=== PATIENT | female | born 1955 | race Caucasian/White ===

== ENCOUNTER → 2016-05-06 | Outpatient (CLI) | payer MEDICARE ==
[~2016-05-06] MED LIST: ALBUTEROL2.5 MG/0.5 INH; ATORVASTATIN CA80 M1 PO; CLINDAMYCIN HC300 MG PO; CYCLOBENZAPRINE10 MG PO; CYCLOBENZAPRINE5 M3 PO; GABAPENTIN100 M2 PO; HUMALOG100 U/ML SC; HYDROCODONE BIT1 T11 PO; LEVEMIR10 ML SC; LISINOPRIL20 MG PO; METFORMIN1000 MG PO; NYAMYC100000 U/G T; PREDNISONE20 M1 PO; PROAIR HFA8.5 GM INH; QVAR0.08 MG/AC INH; TRAMADOL HCL50 MG PO; VIBRAMYCIN100 MG PO; VOLTAREN50 M1 PO; ZOVIRAX400 MG PO
== END | disposition home or self-care (01) ==
LOC: RESCLI 02:32
DX: Z12.31 Encounter for screening mammogram for malignant neoplasm of breast (principal); Z11.59 Encounter for screening for other viral diseases; Z79.4 Long term (current) use of insulin; E11.65 Type 2 diabetes mellitus with hyperglycemia; G47.00 Insomnia, unspecified; I10 Essential (primary) hypertension; E78.2 Mixed hyperlipidemia; M15.0 Primary generalized (osteo)arthritis; G62.9 Polyneuropathy, unspecified; Z88.0 Allergy status to penicillin

== ENCOUNTER → 2016-07-01 | Outpatient (CLI) | payer MEDICARE | END | disposition home or self-care (01) | LOC: RESCLI 03:03 | DX: E11.65 Type 2 diabetes mellitus with hyperglycemia (principal); F32.9 Major depressive disorder, single episode, unspecified; I10 Essential (primary) hypertension; Z88.0 Allergy status to penicillin ==

== ENCOUNTER → 2016-07-23 | Day surgery (SDC) | payer MEDICARE ==
[~2016-07-23] VITALS: Ht 162.5 cm; Wt 107.0 kg
[~2016-07-23] MED LIST changes: +LANTUS100 U/ML SQ
--- NOTE | ~2016-07-23 | O ---
[place], [place] OPERATIVE NOTE NAME: KATHIE MEANS UNIT #: [id number] ROOM: DOCTOR: CALVIN FLORES MD BIRTHDATE: [birth year] DOS: 07/23/2016 A 60-year-old patient who presented with chief complaint of concern about colonic screening, undergoing investigation. ALLERGIES: PENICILLIN, SULFA, IODINE, ASPIRIN and LUCIANO PRODUCT OF ANESTHESIA. FAMILY HISTORY: Mother with colonic carcinoma. PAST SURGICAL HISTORY: Tubal ligation. Carpal tunnel, cataracts, and bilateral total knee. PAST MEDICAL HISTORY: Diabetes, hypertension, neuropathy, asthma, restless leg. SOCIAL HISTORY: Nonsmoker, nonalcohol consumer, drinking 3 sodas per day. PROCEDURE: Today's procedure part of investigation is colonoscopy plus polypectomy. PREMEDICATION: Versed and Diprivan. SCOPE: Olympus forward-viewing colonoscope 10L video. REPORT: After putting the patient in the left lateral position and after application of lubricant to rectal pouch and digital examination, scope was introduced. Thereafter, under direct visualization, I advanced through the length of colon without difficulty. Base of the cecum explored, appendiceal orifice identified, and ileocecal valve was defined. The cecal polypoid lesion with piecemeal polypectomy removed. Air was suctioned out. The patient was gradually extubated and tolerated the procedure well. IMPRESSION: Cecal colonic polyp, status post piecemeal polypectomy. PLAN AND DISCUSSION: High fiber fruit diet, activity Ad sotero. FOLLOWUP: As an outpatient routinely with you in office and follow up with us in GI Clinic. [place], [place] OPERATIVE NOTE NAME: KATHIE MEANS UNIT #: [id number] ROOM: DOCTOR: CALVIN FLORES MD BIRTHDATE: [birth year] CALVIN FLORES MD CM:OPRECORD:OPERATIVE NOTE 2 1 CALVIN FLORES MD 07/23/16831 interface
[2016-07-23 06:45] VITALS: BP 114/72
[2016-07-23 08:08] VITALS: BP 135/75
[2016-07-23 08:25] VITALS: BP 150/76
[2016-07-23 08:33] VITALS: BP 155/83
== END | disposition home or self-care (01) ==
LOC: SDC 07-17 09:30
DX: Z12.11 Encounter for screening for malignant neoplasm of colon (principal); K63.5 Polyp of colon; I10 Essential (primary) hypertension; E11.9 Type 2 diabetes mellitus without complications; J45.909 Unspecified asthma, uncomplicated; G25.81 Restless legs syndrome; G62.9 Polyneuropathy, unspecified; Z98.51 Tubal ligation status; Z80.0 Family history of malignant neoplasm of digestive organs; K21.9 Gastro-esophageal reflux disease without esophagitis; M19.90 Unspecified osteoarthritis, unspecified site; Z83.3 Family history of diabetes mellitus; Z82.49 Family history of ischemic heart disease and other diseases of the circulatory system

== ENCOUNTER → 2016-07-29 | Outpatient (CLI) | payer MEDICARE ==
[2016-07-29 10:15] LABS: HEMOGLOBIN A1c 7.7 % (4.8-5.6)
== END | disposition home or self-care (01) ==
LOC: RESCLI 02:03 → LAB 02:03 → RESCLI 12:01
PROVIDERS: Internal Medicine
DX: E11.42 Type 2 diabetes mellitus with diabetic polyneuropathy (principal)

== ENCOUNTER → 2016-10-20 | Outpatient (CLI) | payer MEDICARE ==
[2016-10-20 11:53] LABS: BUN 21 mg/dl (7-24); CARBON DIOXIDE 28 mmol/L (21-32); CHLORIDE 103 mmol/L (98-107); EST GLOM FILT AFRICAN AMERICAN > 60 ml/min; GLUCOSE 94 mg/dL (65-99); POTASSIUM 4.8 mmol/L (3.5-5.1); SODIUM 140 mmol/L (136-145)
[2016-10-20 12:04] LABS: HEMOGLOBIN A1c 7.4 % (4.8-5.6)
[2016-10-20 13:05] LABS: VITAMIN D, 25-HYDROXY 23.2 ng/mL (30-100)
== END | disposition home or self-care (01) ==
LOC: LAB 11:00
PROVIDERS: Internal Medicine
DX: E11.42 Type 2 diabetes mellitus with diabetic polyneuropathy (principal); R53.82 Chronic fatigue, unspecified; E55.9 Vitamin D deficiency, unspecified

== ENCOUNTER → 2016-10-28 | Outpatient (CLI) | payer MEDICARE | END | disposition home or self-care (01) | LOC: RESCLI 02:55 | DX: Z13.820 Encounter for screening for osteoporosis (principal); E11.21 Type 2 diabetes mellitus with diabetic nephropathy; F33.9 Major depressive disorder, recurrent, unspecified; E78.2 Mixed hyperlipidemia; E55.9 Vitamin D deficiency, unspecified; E53.8 Deficiency of other specified B group vitamins; I10 Essential (primary) hypertension ==

== ENCOUNTER → 2017-05-21 | Outpatient (CLI) | payer MEDICARE | END | disposition home or self-care (01) | LOC: LAB 12:47 | DX: E11.21 Type 2 diabetes mellitus with diabetic nephropathy (principal) ==

== ENCOUNTER → 2017-05-26 | Outpatient (CLI) | payer MEDICARE ==
[2017-05-26 10:37] LABS: BASO % 0.5 % (0.0-1.0); EOS # 0.4 10*3/uL (0.0-0.4); EOS % 5.3 % (1.0-4.0); HEMATOCRIT 40.4 % (37.0-47.0); HEMOGLOBIN 13.2 g/dl (12.0-16.0); LYMPH # 2.4 10*3/uL (1.3-4.4); LYMPH % 28.9 % (27.0-41.0); MEAN CELL VOLUME 87.4 fl (81.0-99.0); MEAN CORPUSCULAR HGB 28.6 pg (27.0-31.0); MEAN CORPUSCULAR HGB CONC 32.7 g/dl (33.0-37.0); MEAN PLATELET VOLUME 10.2 fl (9.6-12.3); MONO # 0.7 10*3/uL (0.1-1.0); NEUT # 4.6 10*3/uL (2.3-7.9); NEUT % 56.9 % (47.0-73.0); PLATELET COUNT AUTOMATED 318 10*3/uL (130-400); RED BLOOD COUNT 4.62 10*6/uL (4.10-5.10); WHITE BLOOD COUNT 8.1 10*3/uL (4.8-10.8)
[2017-05-26 11:11] LABS: ALBUMIN 3.9 gm/dl (3.1-4.5); ALKALINE PHOSPHATASE 101 U/L (45-117); BUN 19 mg/dl (7-24); CHLORIDE 102 mmol/L (98-107); CHOLESTEROL 150 mg/dL (<200); CREATININE 0.88 mg/dL (0.55-1.02); HDL CHOLESTEROL 48 mg/dl (40-60); LDL CHOLESTEROL 69 mg/dL (9-159); POTASSIUM 4.2 mmol/L (3.5-5.1); SGOT/AST 22 IU/L (3-35); SGPT/ALT 29 U/L (12-78); SODIUM 137 mmol/L (136-145); TOTAL PROTEIN 7.6 gm/dL (6.4-8.2); TRIGLYCERIDES 165 mg/dl (<150); VLDL CHOLESTEROL 33 mg/dL (6-40)
== END | disposition home or self-care (01) ==
LOC: RESCLI 00:35
PROVIDERS: Internal Medicine
DX: Z23 Encounter for immunization (principal); E11.65 Type 2 diabetes mellitus with hyperglycemia; M15.0 Primary generalized (osteo)arthritis; E78.2 Mixed hyperlipidemia; F33.9 Major depressive disorder, recurrent, unspecified; E11.42 Type 2 diabetes mellitus with diabetic polyneuropathy; J45.40 Moderate persistent asthma, uncomplicated; I10 Essential (primary) hypertension; E55.9 Vitamin D deficiency, unspecified; E66.01 Morbid (severe) obesity due to excess calories; Z86.19 Personal history of other infectious and parasitic diseases; Z88.0 Allergy status to penicillin; Z88.2 Allergy status to sulfonamides; Z88.6 Allergy status to analgesic agent; Z91.041 Radiographic dye allergy status

== ENCOUNTER → 2017-06-22 | Outpatient (CLI) | payer MEDICARE | END | disposition home or self-care (01) | LOC: RESCLI 02:11 | DX: E11.65 Type 2 diabetes mellitus with hyperglycemia (principal); E11.42 Type 2 diabetes mellitus with diabetic polyneuropathy; I10 Essential (primary) hypertension; E66.01 Morbid (severe) obesity due to excess calories; R80.9 Proteinuria, unspecified; B02.9 Zoster without complications; E78.2 Mixed hyperlipidemia; E55.9 Vitamin D deficiency, unspecified; Z88.0 Allergy status to penicillin ==

== ENCOUNTER → 2017-07-01 | Outpatient (CLI) | payer MEDICARE | END | disposition home or self-care (01) | LOC: MAMMO 00:33 | DX: Z12.31 Encounter for screening mammogram for malignant neoplasm of breast (principal) ==

== ENCOUNTER → 2017-09-17 | Outpatient (CLI) | payer MEDICARE ==
[2017-09-17 11:14] LABS: HEMOGLOBIN 12.2 g/dl (12.0-16.0); MEAN CELL VOLUME 91.1 fl (81.0-99.0); MEAN CORPUSCULAR HGB 28.5 pg (27.0-31.0); MEAN CORPUSCULAR HGB CONC 31.3 g/dl (33.0-37.0); MEAN PLATELET VOLUME 10.7 fl (9.6-12.3); RED BLOOD COUNT 4.28 10*6/uL (4.10-5.10); RED CELL DISTRI WIDTH 14.4 % (0-14.5); WHITE BLOOD COUNT 7.5 10*3/uL (4.8-10.8)
[2017-09-17 11:42] LABS: BUN 22 mg/dl (7-24); CHLORIDE 102 mmol/L (98-107); CHOLESTEROL 105 mg/dL (<200); CREATININE 0.95 mg/dL (0.55-1.02); HDL CHOLESTEROL 40 mg/dl (40-60); LDL CHOLESTEROL 43 mg/dL (9-159); POTASSIUM 4.9 mmol/L (3.5-5.1); SODIUM 138 mmol/L (136-145); TRIGLYCERIDES 108 mg/dl (<150); VLDL CHOLESTEROL 22 mg/dL (6-40)
== END | disposition home or self-care (01) ==
LOC: LAB 10:42
PROVIDERS: Internal Medicine
DX: E11.65 Type 2 diabetes mellitus with hyperglycemia (principal)

== ENCOUNTER → 2017-10-13 | Outpatient (CLI) | payer MEDICARE | END | disposition home or self-care (01) | LOC: RESCLI 02:36 | DX: I10 Essential (primary) hypertension (principal); E11.65 Type 2 diabetes mellitus with hyperglycemia; E78.2 Mixed hyperlipidemia; D51.0 Vitamin B12 deficiency anemia due to intrinsic factor deficiency; M15.0 Primary generalized (osteo)arthritis; E66.01 Morbid (severe) obesity due to excess calories; J45.40 Moderate persistent asthma, uncomplicated; E55.9 Vitamin D deficiency, unspecified; F33.9 Major depressive disorder, recurrent, unspecified; R25.2 Cramp and spasm; Z88.0 Allergy status to penicillin; Z88.2 Allergy status to sulfonamides; Z88.8 Allergy status to other drugs, medicaments and biological substances ==

== ENCOUNTER 2018-07-11 00:54 | Inpatient (IN) | payer MEDICARE ==
[~2018-07-11] VITALS: Ht 162.5 cm; Wt 114.2 kg
--- NOTE | ~2018-07-11 | EKG ---
[place], [place] ELECTROCARDIOGRAM REPORT NAME: KATHIE MEANS UNIT #: [id number] ROOM: [id number] DOCTOR: QUIANA DRAFT REPORT BIRTHDATE: [birth year] [facility] Test Date: 2018-07-11 Test Time: 01:17:50 Pat Name: KATHIE MEANS Department: ER Room: [facility] Gender: F [employer] Manager: Connie John : 1955 Requested By: GORGE SMITH Order Number: [id number] Reading MD: Curtis Wilkinson Measurements Intervals [place] Rate: 91 P: 61 UT: 175 QRS: -1 QRSD: 98 T: 59 QT: 391 QTc: 482 Interpretive Statements Sinus rhythm Baseline wander in lead(s) V3 Electronically Signed On 07-11-2018 11:07:04 PDT by Curtis Wilkinson CM:EKGRPT:ELECTROCARDIOGRAM REPORT [id number] GORGE RUVALCABA DRAFT REPORT GORGE SMITH DO
[2018-07-11 00:58] VITALS: BP 141/62
--- NOTE | 2018-07-11 01:11 | NUR ---
REPORT GIVEN TO MISTY DE PAZ RN.
[2018-07-11 01:32] LABS: BASO % 0.3 % (0.0-1.0); EOS # 0.1 10*3/uL (0.0-0.4); EOS % 1.2 % (1.0-4.0); HEMATOCRIT 45.2 % (37.0-47.0); LYMPH # 2.2 10*3/uL (1.3-4.4); LYMPH % 18.8 % (27.0-41.0); MEAN CORPUSCULAR HGB 29.9 pg (27.0-31.0); MEAN CORPUSCULAR HGB CONC 33.2 g/dl (33.0-37.0); MEAN PLATELET VOLUME 10.6 fl (9.6-12.3); MONO # 0.6 10*3/uL (0.1-1.0); NEUT # 8.6 10*3/uL (2.3-7.9); NEUT % 74.2 % (47.0-73.0); PLATELET COUNT AUTOMATED 314 10*3/uL (130-400); RED BLOOD COUNT 5.02 10*6/uL (4.10-5.10); RED CELL DISTRI WIDTH 13.6 % (0-14.5); WHITE BLOOD COUNT 11.6 10*3/uL (4.8-10.8)
--- NOTE | 2018-07-11 01:33 | NUR ---
CRITICAL LAB TAKEN LA 5.8. NOTIFIED.
[2018-07-11 01:39] LABS: BILIRUBIN NEGATIVE (NEGATIVE); BLOOD NEGATIVE (NEGATIVE); CLARITY CLEAR (CLEAR); COLOR YELLOW (YELLOW); GLUCOSE 3+ (NEGATIVE); KETONE NEGATIVE (NEGATIVE); LEUKO ESTERASE NEGATIVE (NEGATIVE); NITRITE NEGATIVE (NEGATIVE); SPECIFIC GRAVITY <= 1.005 (1.005-1.030); UROBILINOGEN 0.2 E.U./dl (0.2-1.0)
[2018-07-11 01:45] LABS: EPITHELIAL CELLS 0-5
[2018-07-11 02:02] LABS: ALBUMIN 3.8 gm/dl (3.1-4.5); ALKALINE PHOSPHATASE 113 U/L (45-117); BUN 19 mg/dl (7-24); CHLORIDE 94 mmol/L (98-107); CREATININE 1.19 mg/dL (0.55-1.02); POTASSIUM 3.9 mmol/L (3.5-5.1); SGOT/AST 17 IU/L (3-35); SGPT/ALT 24 U/L (12-78); SODIUM 131 mmol/L (136-145); TOTAL PROTEIN 8.2 gm/dL (6.4-8.2); TROPONIN I < 0.015 ng/ml (<0.045)
--- NOTE | 2018-07-11 03:35 | NUR ---
PT REFUSED TO TAKE WET PANTS OFF
[2018-07-11 03:45] VITALS: BP 90/70
--- NOTE | 2018-07-11 03:45 | NUR ---
Time: 344 A 62 year old FEMALE admitted to 5E under services of DONTE TRUJILLO DO. Pt. arrived via stretcher from ER. Chief complaint: HYPERGLYCEMIA, LACTIC ACIDOSIS. BOBY NANCE
--- NOTE | 2018-07-11 04:18 | NUR ---
NOTIFIED DR LEAVITT OF LA 5.0. NO NEW ORDERS RECEIVED.
[2018-07-11] MEDS ORDERED: GLUCOPHAGE1000 MG PO (04:51)
[2018-07-11] MEDS ORDERED: PAROXETINE HCL30 MG PO (04:52)
--- NOTE | 2018-07-11 06:29 | NUR ---
NOTIFIED DR LEAVITT OF LACTIC ACID 4.6. NO NEW ORDERS RECEIVED.
[2018-07-11 08:00] VITALS: BP 126/62; BP 132/74
--- NOTE | 2018-07-11 08:26 | NUR ---
24 HR chart check completed.
[2018-07-11] MEDS ORDERED: LEVEMIR FL100 UNIT/1 SQ (09:27)
[2018-07-11] MEDS ORDERED: NEURONTIN300 MG PO (09:28)
--- NOTE | 2018-07-11 09:30 | NUR ---
FAMILY PRESENT,VISITING. NO DISTRESS NOTED. RESPIRATIONS EASY. LUNGS DIMINISHED, CLEAR. PULSE O X99% RA. IV FLUIDS INFUSING PER ORDER. CALL LIGHT WITHIN REACH. NO VOICED COMPLAINTS
--- NOTE | 2018-07-11 10:00 | NUR ---
PATIENT UNSURE OF ALL HOME MEDS. QUESTIONED LAST TIME TAKEN, PER PATIENT "COUPLE DAYS." NOONE AVAIL TO GET MED LIST, PATIENT HAS MEDS FILLED SEVERAL DIFFERENT PLACES.
[2018-07-11] MEDS ORDERED: ZETIA10 MG PO (10:42)
--- NOTE | 2018-07-11 11:05 | NUR ---
DR VELASQUEZ AND AMY PRESENT ON FLOOR, INFORMED OF CRITICAL LACTIC
[2018-07-11 12:00] VITALS: BP 142/74
--- NOTE | 2018-07-11 13:15 | NUR ---
DR REYES CONTACTED AND INFORMED IF CRITICAL LACTIC, NEW ORDERS RECEIVED
--- NOTE | 2018-07-11 15:55 | NUR ---
LACTIC ACID 1.5, DR REYES INFORMED. PATIENT OK FOR D/C
[2018-07-11 16:00] VITALS: BP 140/62
--- NOTE | 2018-07-11 17:03 | NUR ---
PATIENT DISCHARGED IN CARE OF FAMILY MEMBER. IV WAS REMOVED AND PRESSURE DRESSING APPLIED. VERBALIZED UNDERSTANDING OF DISCHARGE INSTRUCTIONS.
== END 2018-07-11 17:04 | disposition home or self-care (01) | DRG 896 ==
LOC: ED 00:54 → EDHOLD 02:52 → 5E 03:07
PROVIDERS: Emergency Medicine; ADMIT Internal Medicine
DX: F10.920 Alcohol use, unspecified with intoxication, uncomplicated (principal); N17.0 Acute kidney failure with tubular necrosis; G93.41 Metabolic encephalopathy; E87.2 Acidosis; E87.1 Hypo-osmolality and hyponatremia; Z68.41 Body mass index [BMI] 40.0-44.9, adult; E11.65 Type 2 diabetes mellitus with hyperglycemia; M19.90 Unspecified osteoarthritis, unspecified site; J45.909 Unspecified asthma, uncomplicated; E78.5 Hyperlipidemia, unspecified; K21.9 Gastro-esophageal reflux disease without esophagitis; I10 Essential (primary) hypertension; E66.01 Morbid (severe) obesity due to excess calories; E11.42 Type 2 diabetes mellitus with diabetic polyneuropathy; G25.81 Restless legs syndrome; Y90.7 Blood alcohol level of 200-239 mg/100 ml; E87.8 Other disorders of electrolyte and fluid balance, not elsewhere classified; N32.81 Overactive bladder; Z96.653 Presence of artificial knee joint, bilateral; Z82.49 Family history of ischemic heart disease and other diseases of the circulatory system; Z83.3 Family history of diabetes mellitus; Z80.9 Family history of malignant neoplasm, unspecified; Z98.51 Tubal ligation status; Z88.0 Allergy status to penicillin; Z88.2 Allergy status to sulfonamides; Z88.6 Allergy status to analgesic agent; Z91.041 Radiographic dye allergy status; Z79.4 Long term (current) use of insulin; Z79.84 Long term (current) use of oral hypoglycemic drugs; Z79.899 Other long term (current) drug therapy

== ENCOUNTER → 2018-07-27 | Outpatient (CLI) | payer MEDICARE ==
[~2018-07-27] MED LIST changes: +CIPRO500 MG PO; +GLUCOPHAGE1000 MG PO; +LEVEMIR FL100 UNIT/1 SQ; +NEURONTIN300 MG PO; +PAROXETINE HCL30 MG PO; +ZETIA10 MG PO
== END | disposition home or self-care (01) ==
LOC: RESCLI 02:23
DX: Z09 Encounter for follow-up examination after completed treatment for conditions other than malignant neoplasm (principal); E11.41 Type 2 diabetes mellitus with diabetic mononeuropathy; J45.909 Unspecified asthma, uncomplicated; G89.29 Other chronic pain; E66.01 Morbid (severe) obesity due to excess calories; M54.9 Dorsalgia, unspecified; M79.2 Neuralgia and neuritis, unspecified; I10 Essential (primary) hypertension; F32.9 Major depressive disorder, single episode, unspecified; E55.9 Vitamin D deficiency, unspecified; E78.5 Hyperlipidemia, unspecified; K21.9 Gastro-esophageal reflux disease without esophagitis; Z79.899 Other long term (current) drug therapy; Z88.0 Allergy status to penicillin; Z88.2 Allergy status to sulfonamides; Z79.4 Long term (current) use of insulin; Z91.041 Radiographic dye allergy status; Z88.8 Allergy status to other drugs, medicaments and biological substances

== ENCOUNTER 2018-10-26 11:24 | Emergency (ER) | payer MEDICARE ==
[~2018-10-26] VITALS: Wt 115.7 kg
[2018-10-26 11:24] VITALS: BP 172/85
[~2018-10-26 11:24] MED LIST changes: -CIPRO500 MG PO
[2018-10-26 12:25] LABS: BASO # 0.1 10*3/uL (0.0-0.1); BASO % 0.6 % (0.0-1.0); EOS # 0.4 10*3/uL (0.0-0.4); EOS % 3.8 % (1.0-4.0); HEMATOCRIT 41.5 % (37.0-47.0); HEMOGLOBIN 13.2 g/dl (12.0-16.0); LYMPH # 2.1 10*3/uL (1.3-4.4); LYMPH % 20.5 % (27.0-41.0); MEAN CELL VOLUME 93.9 fl (81.0-99.0); MEAN CORPUSCULAR HGB 29.9 pg (27.0-31.0); MEAN CORPUSCULAR HGB CONC 31.8 g/dl (33.0-37.0); MEAN PLATELET VOLUME 10.2 fl (9.6-12.3); MONO # 0.6 10*3/uL (0.1-1.0); MONO % 5.4 % (3.0-9.0); NEUT % 69.3 % (47.0-73.0); PLATELET COUNT AUTOMATED 324 10*3/uL (130-400); RED BLOOD COUNT 4.42 10*6/uL (4.10-5.10); RED CELL DISTRI WIDTH 13.7 % (0-14.5); WHITE BLOOD COUNT 10.1 10*3/uL (4.8-10.8)
[2018-10-26 12:41] LABS: ALBUMIN 4.1 gm/dl (3.1-4.5); ALKALINE PHOSPHATASE 100 U/L (45-117); BUN 25 mg/dl (7-24); CHLORIDE 106 mmol/L (98-107); CREATININE 0.99 mg/dL (0.55-1.02); POTASSIUM 4.1 mmol/L (3.5-5.1); SGOT/AST 15 IU/L (3-35); SGPT/ALT 25 U/L (12-78); SODIUM 141 mmol/L (136-145); TOTAL PROTEIN 7.9 gm/dL (6.4-8.2)
[2018-10-26 12:43] LABS: FREE T4 0.99 ng/dl (0.76-1.46)
[2018-10-26 12:48] LABS: THYROID STIM HORMONE (HS) 1.85 uIU/ml (0.358-4.75)
[2018-10-26] MEDS ORDERED: CIPRO500 MG PO (15:38)
== END 2018-10-26 15:42 | disposition home or self-care (01) ==
LOC: ED 11:24
PROVIDERS: Emergency Medicine
DX: H60.92 Unspecified otitis externa, left ear (principal); H66.92 Otitis media, unspecified, left ear; E11.9 Type 2 diabetes mellitus without complications; I10 Essential (primary) hypertension; J45.909 Unspecified asthma, uncomplicated; E78.5 Hyperlipidemia, unspecified; K21.9 Gastro-esophageal reflux disease without esophagitis; E66.01 Morbid (severe) obesity due to excess calories; Z88.0 Allergy status to penicillin; Z88.2 Allergy status to sulfonamides; Z91.041 Radiographic dye allergy status; Z88.6 Allergy status to analgesic agent; Z88.5 Allergy status to narcotic agent; Z88.4 Allergy status to anesthetic agent; Z79.4 Long term (current) use of insulin; Z79.899 Other long term (current) drug therapy

== ENCOUNTER → 2018-10-29 | Outpatient (CLI) | payer MEDICARE ==
[~2018-10-29] MED LIST changes: +CIPRO500 MG PO
== END | disposition home or self-care (01) ==
LOC: RESCLI 00:23
DX: E11.42 Type 2 diabetes mellitus with diabetic polyneuropathy (principal); E11.65 Type 2 diabetes mellitus with hyperglycemia; J45.909 Unspecified asthma, uncomplicated; D51.0 Vitamin B12 deficiency anemia due to intrinsic factor deficiency; G47.00 Insomnia, unspecified; M15.0 Primary generalized (osteo)arthritis; F33.9 Major depressive disorder, recurrent, unspecified; I10 Essential (primary) hypertension; G62.9 Polyneuropathy, unspecified; E78.2 Mixed hyperlipidemia; E55.9 Vitamin D deficiency, unspecified; J45.40 Moderate persistent asthma, uncomplicated; R80.9 Proteinuria, unspecified; R25.2 Cramp and spasm; G89.29 Other chronic pain; E66.01 Morbid (severe) obesity due to excess calories; H83.02 Labyrinthitis, left ear; E78.5 Hyperlipidemia, unspecified; B37.3 Candidiasis of vulva and vagina; Z79.4 Long term (current) use of insulin; Z79.899 Other long term (current) drug therapy

== ENCOUNTER → 2019-02-08 | Outpatient (CLI) | payer OTHER | END | disposition home or self-care (01) | LOC: RESCLI 00:52 | DX: Z12.4 Encounter for screening for malignant neoplasm of cervix (principal); E55.9 Vitamin D deficiency, unspecified; J45.909 Unspecified asthma, uncomplicated; E78.2 Mixed hyperlipidemia; G89.29 Other chronic pain; G62.9 Polyneuropathy, unspecified; I10 Essential (primary) hypertension; F32.9 Major depressive disorder, single episode, unspecified; E11.65 Type 2 diabetes mellitus with hyperglycemia; G47.33 Obstructive sleep apnea (adult) (pediatric); M54.40 Lumbago with sciatica, unspecified side; K21.9 Gastro-esophageal reflux disease without esophagitis; Z79.899 Other long term (current) drug therapy ==

== ENCOUNTER → 2019-05-24 | Outpatient (CLI) | payer OTHER ==
[2019-05-24 13:08] LABS: CHOLESTEROL 143 mg/dL (<200); HDL CHOLESTEROL 42 mg/dl (40-60); LDL CHOLESTEROL 42 mg/dL (9-159); TRIGLYCERIDES 295 mg/dl (<150); VLDL CHOLESTEROL 59 mg/dL (6-40)
== END | disposition home or self-care (01) ==
LOC: RESCLI 01:03
PROVIDERS: Student in an Organized Health Care Education/Training Program
DX: Z12.31 Encounter for screening mammogram for malignant neoplasm of breast (principal); Z12.4 Encounter for screening for malignant neoplasm of cervix; G89.29 Other chronic pain; E78.2 Mixed hyperlipidemia; G62.9 Polyneuropathy, unspecified; I10 Essential (primary) hypertension; E11.65 Type 2 diabetes mellitus with hyperglycemia; J45.909 Unspecified asthma, uncomplicated; F32.9 Major depressive disorder, single episode, unspecified; E55.9 Vitamin D deficiency, unspecified; K21.9 Gastro-esophageal reflux disease without esophagitis; B37.9 Candidiasis, unspecified; Z88.0 Allergy status to penicillin; Z88.8 Allergy status to other drugs, medicaments and biological substances

== ENCOUNTER → 2019-06-09 | Outpatient (CLI) | payer OTHER | END | disposition home or self-care (01) | LOC: MAMMO 07:02 | DX: Z12.31 Encounter for screening mammogram for malignant neoplasm of breast (principal) ==

== ENCOUNTER 2019-09-06 19:21 | Emergency (ER) | payer OTHER ==
[~2019-09-06] VITALS: Ht 162.5 cm; Wt 122.5 kg
[2019-09-06 19:26] VITALS: BP 186/77
[2019-09-06] MEDS ORDERED: OMNICEF300 MG PO (21:48)
== END 2019-09-06 22:05 | disposition home or self-care (01) ==
LOC: ED 19:21
DX: J32.9 Chronic sinusitis, unspecified (principal); J45.909 Unspecified asthma, uncomplicated; M19.90 Unspecified osteoarthritis, unspecified site; K21.9 Gastro-esophageal reflux disease without esophagitis; I10 Essential (primary) hypertension; E66.01 Morbid (severe) obesity due to excess calories; E11.43 Type 2 diabetes mellitus with diabetic autonomic (poly)neuropathy; Z88.0 Allergy status to penicillin; Z88.2 Allergy status to sulfonamides; Z88.6 Allergy status to analgesic agent; Z91.041 Radiographic dye allergy status; Z79.899 Other long term (current) drug therapy

== ENCOUNTER → 2019-11-02 | Outpatient (CLI) | payer OTHER ==
[~2019-11-02] MED LIST changes: +OMNICEF300 MG PO
== END | disposition home or self-care (01) ==
LOC: RESCLI 00:43
DX: E78.2 Mixed hyperlipidemia (principal); J45.909 Unspecified asthma, uncomplicated; J45.40 Moderate persistent asthma, uncomplicated; E11.65 Type 2 diabetes mellitus with hyperglycemia; B37.9 Candidiasis, unspecified; J32.1 Chronic frontal sinusitis; G89.29 Other chronic pain; I10 Essential (primary) hypertension; Z79.899 Other long term (current) drug therapy; Z98.890 Other specified postprocedural states; Z98.51 Tubal ligation status; Z88.0 Allergy status to penicillin; Z88.8 Allergy status to other drugs, medicaments and biological substances

== ENCOUNTER 2019-11-21 14:02 | Emergency (ER) | payer OTHER ==
[2019-11-21 14:09] VITALS: BP 169/100
== END 2019-11-21 17:23 | disposition home or self-care (01) ==
LOC: ED 14:02
DX: T14.8XXA Other injury of unspecified body region, initial encounter (principal); R07.81 Pleurodynia; M25.512 Pain in left shoulder; J45.909 Unspecified asthma, uncomplicated; K21.9 Gastro-esophageal reflux disease without esophagitis; M19.90 Unspecified osteoarthritis, unspecified site; E11.42 Type 2 diabetes mellitus with diabetic polyneuropathy; F17.200 Nicotine dependence, unspecified, uncomplicated; Z88.0 Allergy status to penicillin; Z88.2 Allergy status to sulfonamides; Z91.041 Radiographic dye allergy status; Z88.6 Allergy status to analgesic agent; Z88.4 Allergy status to anesthetic agent; Z79.899 Other long term (current) drug therapy; Z79.4 Long term (current) use of insulin; W01.198A Fall on same level from slipping, tripping and stumbling with subsequent striking against other object, initial encounter; Y93.89 Activity, other specified; Y92.89 Other specified places as the place of occurrence of the external cause; Y99.8 Other external cause status

== ENCOUNTER → 2020-02-16 | Outpatient (CLI) | payer OTHER | END | disposition home or self-care (01) | LOC: RESCLI 05:14 | PROVIDERS: ATTEND Internal Medicine | DX: K21.9 Gastro-esophageal reflux disease without esophagitis (principal); I10 Essential (primary) hypertension; E11.65 Type 2 diabetes mellitus with hyperglycemia; G89.29 Other chronic pain; E55.9 Vitamin D deficiency, unspecified; J32.0 Chronic maxillary sinusitis; Z79.899 Other long term (current) drug therapy; Z23 Encounter for immunization; Z98.890 Other specified postprocedural states; Z88.0 Allergy status to penicillin; Z88.8 Allergy status to other drugs, medicaments and biological substances ==

== ENCOUNTER → 2020-04-25 | Outpatient (CLI) | payer OTHER | END | disposition home or self-care (01) | LOC: RESCLI 00:11 | PROVIDERS: ATTEND Internal Medicine Nephrology | DX: E78.2 Mixed hyperlipidemia (principal); J45.909 Unspecified asthma, uncomplicated; E11.65 Type 2 diabetes mellitus with hyperglycemia; I10 Essential (primary) hypertension; J32.0 Chronic maxillary sinusitis; R26.89 Other abnormalities of gait and mobility; F32.9 Major depressive disorder, single episode, unspecified; E55.9 Vitamin D deficiency, unspecified; E53.8 Deficiency of other specified B group vitamins; Z79.899 Other long term (current) drug therapy; Z88.0 Allergy status to penicillin; Z88.8 Allergy status to other drugs, medicaments and biological substances ==

== ENCOUNTER → 2020-05-04 | Outpatient (CLI) | payer OTHER ==
[2020-05-04 14:34] LABS: BILIRUBIN Negative (Negative); BLOOD Negative (Negative); CLARITY Cloudy (Clear); COLOR Yellow (Yellow); GLUCOSE 2+ (Negative); KETONE Negative (Negative); LEUKO ESTERASE 3+ (Negative); NITRITE Negative (Negative); SPECIFIC GRAVITY 1.015 (1.001-1.030); UROBILINOGEN 0.2 E.U./dl (0.0-1.0)
[2020-05-04 14:36] LABS: ALBUMIN 3.9 gm/dl (3.1-4.5); BILIRUBIN, DIRECT 0.1 mg/dL (0.0-0.2); CREATININE 1.22 mg/dL (0.55-1.02); POTASSIUM 5.4 mmol/L (3.5-5.1); TOTAL PROTEIN 7.4 gm/dL (6.4-8.2)
[2020-05-04 14:37] LABS: FREE T4 1.08 ng/dl (0.76-1.46)
[2020-05-04 14:42] LABS: THYROID STIM HORMONE (HS) 1.36 uIU/ml (0.358-4.75)
[2020-05-04 14:48] LABS: BACTERIA 2+
== END | disposition home or self-care (01) ==
LOC: LAB 13:57
PROVIDERS: ATTEND Internal Medicine
DX: E11.65 Type 2 diabetes mellitus with hyperglycemia (principal); E55.9 Vitamin D deficiency, unspecified; E04.9 Nontoxic goiter, unspecified; E78.5 Hyperlipidemia, unspecified

== ENCOUNTER → 2020-10-09 | Outpatient (CLI) | payer OTHER ==
[2020-10-09 13:44] LABS: BASO # 0.1 10*3/uL (0.0-0.1); BASO % 0.6 % (0.0-1.0); EOS # 0.5 10*3/uL (0.0-0.4); EOS % 5.1 % (1.0-4.0); HEMATOCRIT 41.2 % (37.0-47.0); LYMPH # 2.6 10*3/uL (1.3-4.4); LYMPH % 24.3 % (27.0-41.0); MEAN CELL VOLUME 93.4 fl (81.0-99.0); MEAN CORPUSCULAR HGB CONC 31.1 g/dl (33.0-37.0); MEAN PLATELET VOLUME 10.1 fl (9.6-12.3); MONO # 0.7 10*3/uL (0.1-1.0); MONO % 6.3 % (3.0-9.0); NEUT # 6.8 10*3/uL (2.3-7.9); NEUT % 63.3 % (47.0-73.0); PLATELET COUNT AUTOMATED 333 10*3/uL (130-400); RED BLOOD COUNT 4.41 10*6/uL (4.10-5.10); RED CELL DISTRI WIDTH 14.8 % (0-14.5); WHITE BLOOD COUNT 10.7 10*3/uL (4.8-10.8)
[2020-10-09 14:38] LABS: ALBUMIN 3.7 gm/dl (3.1-4.5); ALKALINE PHOSPHATASE 87 U/L (45-117); BUN 21 mg/dl (7-24); CHLORIDE 102 mmol/L (98-107); CREATININE 1.02 mg/dL (0.55-1.02); POTASSIUM 5.2 mmol/L (3.5-5.1); SGOT/AST 24 IU/L (3-35); SGPT/ALT 56 U/L (12-78); SODIUM 137 mmol/L (136-145); TOTAL PROTEIN 7.4 gm/dL (6.4-8.2)
[2020-10-10 11:07] LABS: CREATININE,URINE 72.5 mg/dL (Not Estab.)
== END | disposition home or self-care (01) ==
LOC: RESCLI 12:51
PROVIDERS: Internal Medicine; ATTEND Internal Medicine
DX: G47.00 Insomnia, unspecified (principal); R09.81 Nasal congestion; E55.9 Vitamin D deficiency, unspecified; I10 Essential (primary) hypertension; E78.2 Mixed hyperlipidemia; M62.830 Muscle spasm of back; J45.909 Unspecified asthma, uncomplicated; J32.0 Chronic maxillary sinusitis; Z12.31 Encounter for screening mammogram for malignant neoplasm of breast; K21.9 Gastro-esophageal reflux disease without esophagitis; R26.89 Other abnormalities of gait and mobility; F32.9 Major depressive disorder, single episode, unspecified; E11.65 Type 2 diabetes mellitus with hyperglycemia; Z79.84 Long term (current) use of oral hypoglycemic drugs; Z79.899 Other long term (current) drug therapy; Z98.890 Other specified postprocedural states; Z88.0 Allergy status to penicillin; Z88.8 Allergy status to other drugs, medicaments and biological substances

== ENCOUNTER → 2020-10-24 | Outpatient (CLI) | payer OTHER | END | disposition home or self-care (01) | LOC: MAMMO 00:29 | PROVIDERS: ATTEND Internal Medicine | DX: Z12.31 Encounter for screening mammogram for malignant neoplasm of breast (principal) ==

== ENCOUNTER → 2020-11-07 | Outpatient (CLI) | payer OTHER | END | disposition home or self-care (01) | LOC: RESCLI 00:56 | PROVIDERS: ATTEND Internal Medicine | DX: R26.89 Other abnormalities of gait and mobility (principal); I10 Essential (primary) hypertension; E11.9 Type 2 diabetes mellitus without complications; F32.9 Major depressive disorder, single episode, unspecified; J45.909 Unspecified asthma, uncomplicated; K21.9 Gastro-esophageal reflux disease without esophagitis; M79.7 Fibromyalgia; E78.5 Hyperlipidemia, unspecified; M19.90 Unspecified osteoarthritis, unspecified site; Z88.8 Allergy status to other drugs, medicaments and biological substances; Z88.3 Allergy status to other anti-infective agents; Z98.890 Other specified postprocedural states; Z79.899 Other long term (current) drug therapy; Z86.59 Personal history of other mental and behavioral disorders ==

== ENCOUNTER → 2020-12-05 | Outpatient (CLI) | payer OTHER | END | disposition home or self-care (01) | LOC: RESCLI 00:29 | PROVIDERS: ATTEND Emergency Medicine | DX: R05 Cough (principal); M62.830 Muscle spasm of back; R26.89 Other abnormalities of gait and mobility; I10 Essential (primary) hypertension; E55.9 Vitamin D deficiency, unspecified; J45.909 Unspecified asthma, uncomplicated; J32.0 Chronic maxillary sinusitis; K21.9 Gastro-esophageal reflux disease without esophagitis; E11.65 Type 2 diabetes mellitus with hyperglycemia; F32.9 Major depressive disorder, single episode, unspecified; G47.00 Insomnia, unspecified; E78.2 Mixed hyperlipidemia; M79.7 Fibromyalgia; Z88.8 Allergy status to other drugs, medicaments and biological substances; Z88.0 Allergy status to penicillin; Z79.84 Long term (current) use of oral hypoglycemic drugs; Z79.899 Other long term (current) drug therapy ==

== ENCOUNTER → 2021-03-13 | Outpatient (CLI) | payer OTHER | END | disposition home or self-care (01) | LOC: RESCLI 00:25 | PROVIDERS: ATTEND Family Medicine | DX: R10.11 Right upper quadrant pain (principal); E78.2 Mixed hyperlipidemia; M62.830 Muscle spasm of back; E55.9 Vitamin D deficiency, unspecified; F32.9 Major depressive disorder, single episode, unspecified; M79.7 Fibromyalgia; E11.65 Type 2 diabetes mellitus with hyperglycemia; I10 Essential (primary) hypertension; G47.00 Insomnia, unspecified; J45.909 Unspecified asthma, uncomplicated; R26.89 Other abnormalities of gait and mobility; K21.9 Gastro-esophageal reflux disease without esophagitis; J32.0 Chronic maxillary sinusitis; Z96.651 Presence of right artificial knee joint; M19.90 Unspecified osteoarthritis, unspecified site; Z79.899 Other long term (current) drug therapy; Z79.84 Long term (current) use of oral hypoglycemic drugs; Z98.890 Other specified postprocedural states ==

== ENCOUNTER → 2021-06-13 | Outpatient (CLI) | payer OTHER | END | disposition home or self-care (01) | LOC: RESCLI 01:14 | PROVIDERS: ATTEND Student in an Organized Health Care Education/Training Program | DX: E11.65 Type 2 diabetes mellitus with hyperglycemia (principal); I10 Essential (primary) hypertension; F32.9 Major depressive disorder, single episode, unspecified; M62.830 Muscle spasm of back; J30.2 Other seasonal allergic rhinitis; E78.2 Mixed hyperlipidemia; Z79.84 Long term (current) use of oral hypoglycemic drugs; Z79.899 Other long term (current) drug therapy ==

== ENCOUNTER → 2021-08-08 | Outpatient (CLI) | payer OTHER ==
[2021-08-08 14:20] LABS: BASO # 0.1 10*3/uL (0.0-0.1); BASO % 0.4 % (0.0-1.0); EOS # 0.6 10*3/uL (0.0-0.4); EOS % 5.4 % (1.0-4.0); HEMATOCRIT 41.1 % (37.0-47.0); LYMPH % 17.8 % (27.0-41.0); MEAN CELL VOLUME 93.2 fl (81.0-99.0); MEAN CORPUSCULAR HGB 29.9 pg (27.0-31.0); MEAN CORPUSCULAR HGB CONC 32.1 g/dl (33.0-37.0); MONO # 0.6 10*3/uL (0.1-1.0); MONO % 5.2 % (3.0-9.0); NEUT # 7.9 10*3/uL (2.3-7.9); NEUT % 70.8 % (47.0-73.0); PLATELET COUNT AUTOMATED 351 10*3/uL (130-400); RED BLOOD COUNT 4.41 10*6/uL (4.10-5.10); RED CELL DISTRI WIDTH 15.1 % (0-14.5); WHITE BLOOD COUNT 11.1 10*3/uL (4.8-10.8)
[2021-08-08 14:54] LABS: CREATININE 1.48 mg/dL (0.55-1.02); POTASSIUM 4.9 mmol/L (3.5-5.1)
[2021-08-08 15:03] LABS: THYROID STIM HORMONE (HS) 1.09 uIU/ml (0.358-4.75); TOTAL PROTEIN 7.4 gm/dL (6.4-8.2)
[2021-08-08 15:16] LABS: VITAMIN D, 25-HYDROXY 23.3 ng/mL (30-100)
== END | disposition home or self-care (01) ==
LOC: LAB 13:55
PROVIDERS: Internal Medicine; ATTEND Internal Medicine
DX: E11.65 Type 2 diabetes mellitus with hyperglycemia (principal); I10 Essential (primary) hypertension; E78.2 Mixed hyperlipidemia; F32.9 Major depressive disorder, single episode, unspecified; E55.9 Vitamin D deficiency, unspecified

== ENCOUNTER → 2021-08-15 | Outpatient (CLI) | payer OTHER ==
[2021-08-15 13:04] LABS: CREATININE 1.3 mg/dL (0.55-1.02); POTASSIUM 4.7 mmol/L (3.5-5.1)
== END | disposition home or self-care (01) ==
LOC: LAB 00:16 → RESCLI 00:16
PROVIDERS: ATTEND Student in an Organized Health Care Education/Training Program
DX: N17.9 Acute kidney failure, unspecified (principal)

== ENCOUNTER → 2021-08-30 | Outpatient (CLI) | payer OTHER | END | disposition home or self-care (01) | LOC: US 08:29 | PROVIDERS: ATTEND Internal Medicine | DX: K50.80 Crohn's disease of both small and large intestine without complications (principal); K76.0 Fatty (change of) liver, not elsewhere classified ==

== ENCOUNTER → 2021-11-07 | Outpatient (CLI) | payer MEDICARE ==
[~2021-11-07] MED LIST changes: +ADVAIR 250/501 EA INH; +ALLERGY RELIEF25 MG PO; +ASPIRIN81 M1 PO; +FISH OIL 1,0001 EAC4 PO; +JARDIANCE25 MG PO; +LEVEMIR FL100 UNIT/1 SC; +LISINOPRIL40 MG PO; +NOVOLOG10 ML SC; +OMEPRAZOLE40 MG PO; +ONE-DAILY MULT1 EAC1 PO; +SINGULAIR10 M1 PO; +TYLENOL EXTRA500 MG PO; +VICTOZA 3-0.6 MG/0.1 SC; +VITAMIN D-40010 MCG PO; +VITAMIN E90 M1 PO
[2021-11-07 11:43] LABS: BASO # 0.1 10*3/uL (0.0-0.1); BASO % 0.5 % (0.0-1.0); EOS # 0.8 10*3/uL (0.0-0.4); EOS % 7.8 % (1.0-4.0); HEMATOCRIT 40.8 % (37.0-47.0); LYMPH # 1.8 10*3/uL (1.3-4.4); MEAN CELL VOLUME 93.4 fl (81.0-99.0); MEAN CORPUSCULAR HGB 29.3 pg (27.0-31.0); MEAN CORPUSCULAR HGB CONC 31.4 g/dl (33.0-37.0); MEAN PLATELET VOLUME 9.9 fl (9.6-12.3); MONO # 0.7 10*3/uL (0.1-1.0); MONO % 6.7 % (3.0-9.0); NEUT # 7.3 10*3/uL (2.3-7.9); NEUT % 67.7 % (47.0-73.0); PLATELET COUNT AUTOMATED 357 10*3/uL (130-400); RED BLOOD COUNT 4.37 10*6/uL (4.10-5.10); RED CELL DISTRI WIDTH 15.4 % (0-14.5); WHITE BLOOD COUNT 10.8 10*3/uL (4.8-10.8)
[2021-11-07 11:57] LABS: CREATININE 1.18 mg/dL (0.55-1.02); POTASSIUM 5.5 mmol/L (3.5-5.1)
== END | disposition home or self-care (01) ==
LOC: RESCLI 01:10
PROVIDERS: Internal Medicine; ATTEND Internal Medicine
DX: E11.42 Type 2 diabetes mellitus with diabetic polyneuropathy (principal); R05.9 Cough, unspecified; J45.909 Unspecified asthma, uncomplicated; Z79.4 Long term (current) use of insulin; I10 Essential (primary) hypertension; M15.0 Primary generalized (osteo)arthritis; G89.29 Other chronic pain; G47.33 Obstructive sleep apnea (adult) (pediatric); M79.7 Fibromyalgia; K80.20 Calculus of gallbladder without cholecystitis without obstruction; Z79.899 Other long term (current) drug therapy; Z79.82 Long term (current) use of aspirin; Z88.0 Allergy status to penicillin; Z88.8 Allergy status to other drugs, medicaments and biological substances

== ENCOUNTER → 2021-11-13 | Outpatient (CLI) | payer MEDICARE ==
[~2021-11-13] VITALS: Ht 162.5 cm; Wt 124.7 kg
[2021-11-13 13:47] VITALS: BP 125/63
== END | disposition home or self-care (01) ==
LOC: SDC 11-11 14:00 → CARD → SDC 11-14 01:00 → EDSTATUS 11-14 14:00
PROVIDERS: ATTEND Surgery
DX: K42.9 Umbilical hernia without obstruction or gangrene (principal); K80.00 Calculus of gallbladder with acute cholecystitis without obstruction

== ENCOUNTER → 2021-12-19 | Outpatient (CLI) | payer MEDICARE ==
[~2021-12-19] MED LIST changes: +FLONASE ALLERG9.9 ML NAS; -NEURONTIN300 MG PO; +NEURONTIN800 MG PO
== END | disposition home or self-care (01) ==
LOC: CARD 00:37
PROVIDERS: ATTEND Registered Nurse
DX: I10 Essential (primary) hypertension (principal); Z72.0 Tobacco use; E66.01 Morbid (severe) obesity due to excess calories; R94.31 Abnormal electrocardiogram [ECG] [EKG]; R05.9 Cough, unspecified; Z82.49 Family history of ischemic heart disease and other diseases of the circulatory system; R01.1 Cardiac murmur, unspecified; Z01.810 Encounter for preprocedural cardiovascular examination; E78.5 Hyperlipidemia, unspecified; E11.65 Type 2 diabetes mellitus with hyperglycemia

== ENCOUNTER → 2022-02-07 | Outpatient (CLI) | payer MEDICARE ==
[~2022-02-07] MED LIST changes: +CEFUROXIME AXE500 MG PO
== END | disposition home or self-care (01) ==
LOC: RESCLI 00:01 → LAB 01:14 → RESCLI 01:14
PROVIDERS: ATTEND Internal Medicine
DX: E11.65 Type 2 diabetes mellitus with hyperglycemia (principal); E78.2 Mixed hyperlipidemia; E11.42 Type 2 diabetes mellitus with diabetic polyneuropathy; F33.9 Major depressive disorder, recurrent, unspecified; G47.33 Obstructive sleep apnea (adult) (pediatric); I10 Essential (primary) hypertension; K21.9 Gastro-esophageal reflux disease without esophagitis; E55.9 Vitamin D deficiency, unspecified; F17.200 Nicotine dependence, unspecified, uncomplicated; M79.7 Fibromyalgia; G25.81 Restless legs syndrome; J45.41 Moderate persistent asthma with (acute) exacerbation; Z68.42 Body mass index [BMI] 45.0-49.9, adult; Z23 Encounter for immunization; Z98.890 Other specified postprocedural states; Z88.0 Allergy status to penicillin; Z88.8 Allergy status to other drugs, medicaments and biological substances; Z88.2 Allergy status to sulfonamides; Z88.5 Allergy status to narcotic agent; Z79.82 Long term (current) use of aspirin; Z79.84 Long term (current) use of oral hypoglycemic drugs; Z79.899 Other long term (current) drug therapy

== ENCOUNTER 2022-02-18 11:03 | Emergency (ER) | payer MEDICARE ==
[~2022-02-18] VITALS: Wt 113.9 kg
[~2022-02-18 11:03] MED LIST changes: -CEFUROXIME AXE500 MG PO
[2022-02-18 11:29] VITALS: BP 102/56
[2022-02-18 12:28] LABS: BILIRUBIN Negative (Negative); BLOOD Trace-Intact (Negative); CLARITY Turbid (Clear); COLOR Yellow (Yellow); GLUCOSE 1+ (Negative); KETONE Negative (Negative); LEUKO ESTERASE 3+ (Negative); NITRITE Positive (Negative); SPECIFIC GRAVITY 1.015 (1.001-1.030); UROBILINOGEN 0.2 E.U./dl (0.0-1.0)
[2022-02-18 12:41] LABS: BASO # 0.1 10*3/uL (0.0-0.1); BASO % 0.5 % (0.0-1.0); EOS # 0.3 10*3/uL (0.0-0.4); EOS % 2.8 % (1.0-4.0); HEMATOCRIT 38.6 % (37.0-47.0); LYMPH # 2.4 10*3/uL (1.3-4.4); LYMPH % 20.5 % (27.0-41.0); MEAN CELL VOLUME 93.7 fl (81.0-99.0); MEAN CORPUSCULAR HGB 29.9 pg (27.0-31.0); MEAN CORPUSCULAR HGB CONC 31.9 g/dl (33.0-37.0); MEAN PLATELET VOLUME 9.7 fl (9.6-12.3); MONO # 0.9 10*3/uL (0.1-1.0); MONO % 7.4 % (3.0-9.0); NEUT # 7.9 10*3/uL (2.3-7.9); NEUT % 67.9 % (47.0-73.0); PLATELET COUNT AUTOMATED 448 10*3/uL (130-400); RED BLOOD COUNT 4.12 10*6/uL (4.10-5.10); RED CELL DISTRI WIDTH 16.1 % (0-14.5); WHITE BLOOD COUNT 11.6 10*3/uL (4.8-10.8)
[2022-02-18 12:51] LABS: ACT PARTIAL THROMBO TIME 28.7 SECONDS (20.0-32.1); INTERNATIONAL NORM RATIO 0.9 (2.0-3.5)
[2022-02-18 12:54] LABS: ALKALINE PHOSPHATASE 104 U/L (45-117); BUN 27 mg/dl (7-24); CHLORIDE 108 mmol/L (98-107); CREATININE 1.24 mg/dL (0.55-1.02); POTASSIUM 4.9 mmol/L (3.5-5.1); SGOT/AST 24 IU/L (3-35); SGPT/ALT 42 U/L (12-78); SODIUM 139 mmol/L (136-145); TOTAL PROTEIN 7.3 gm/dL (6.4-8.2)
[2022-02-18 12:58] LABS: BACTERIA 3+; EPITHELIAL CELLS 21-30; WBC TNTC wbc/hpf (0-5)
[2022-02-18 13:00] LABS: ETHYL ALCOHOL < 3.0 mg/dl (<3)
[2022-02-18] MEDS ORDERED: CEFUROXIME AXE500 MG PO (16:49)
== END 2022-02-18 17:10 | disposition home or self-care (01) ==
LOC: ED 11:03
PROVIDERS: Emergency Medicine
DX: S62.112A Displaced fracture of triquetrum [cuneiform] bone, left wrist, initial encounter for closed fracture (principal); E11.649 Type 2 diabetes mellitus with hypoglycemia without coma; N39.0 Urinary tract infection, site not specified; K21.9 Gastro-esophageal reflux disease without esophagitis; I10 Essential (primary) hypertension; E66.01 Morbid (severe) obesity due to excess calories; Z88.0 Allergy status to penicillin; Z88.2 Allergy status to sulfonamides; Z88.6 Allergy status to analgesic agent; Z88.4 Allergy status to anesthetic agent; Z79.899 Other long term (current) drug therapy; Z79.82 Long term (current) use of aspirin; Z98.51 Tubal ligation status; Z98.890 Other specified postprocedural states; W18.39XA Other fall on same level, initial encounter; Y93.89 Activity, other specified; Y92.89 Other specified places as the place of occurrence of the external cause; Y99.8 Other external cause status

== ENCOUNTER → 2022-05-08 | Outpatient (CLI) | payer MEDICARE ==
[~2022-05-08] MED LIST changes: +CEFUROXIME AXE500 MG PO
== END | disposition home or self-care (01) ==
LOC: RESCLI 05:09
PROVIDERS: ATTEND Internal Medicine
DX: E78.2 Mixed hyperlipidemia (principal); E11.65 Type 2 diabetes mellitus with hyperglycemia; E55.9 Vitamin D deficiency, unspecified; I10 Essential (primary) hypertension; J45.909 Unspecified asthma, uncomplicated; K21.9 Gastro-esophageal reflux disease without esophagitis; G47.00 Insomnia, unspecified; M62.830 Muscle spasm of back; G89.29 Other chronic pain; F33.9 Major depressive disorder, recurrent, unspecified; K76.0 Fatty (change of) liver, not elsewhere classified; Z79.82 Long term (current) use of aspirin; Z79.4 Long term (current) use of insulin; Z79.899 Other long term (current) drug therapy; F17.200 Nicotine dependence, unspecified, uncomplicated; Z88.0 Allergy status to penicillin; Z88.8 Allergy status to other drugs, medicaments and biological substances

== ENCOUNTER → 2022-06-23 | Day surgery (SDC) | payer MEDICARE ==
[~2022-06-23] VITALS: Ht 162.5 cm; Wt 117.9 kg
[2022-06-23 08:10] VITALS: BP 129/47
[2022-06-23 09:25] VITALS: BP 104/50
[2022-06-23 09:40] VITALS: BP 114/53
[2022-06-23 09:55] VITALS: BP 124/53
[2022-06-23 09:57] VITALS: BP 104/50
== END | disposition home or self-care (01) ==
LOC: SDC 06-19 12:30
PROVIDERS: ATTEND Surgery
DX: Z12.11 Encounter for screening for malignant neoplasm of colon (principal); I10 Essential (primary) hypertension; E78.5 Hyperlipidemia, unspecified; M79.7 Fibromyalgia; F32.A Depression, unspecified; J44.9 Chronic obstructive pulmonary disease, unspecified; E11.40 Type 2 diabetes mellitus with diabetic neuropathy, unspecified; F41.9 Anxiety disorder, unspecified; Z98.890 Other specified postprocedural states; Z79.899 Other long term (current) drug therapy

== ENCOUNTER → 2022-12-09 | Outpatient (CLI) | payer MEDICARE | END | disposition home or self-care (01) | LOC: RESCLI 01:55 | PROVIDERS: ATTEND Student in an Organized Health Care Education/Training Program | DX: E11.40 Type 2 diabetes mellitus with diabetic neuropathy, unspecified (principal); I10 Essential (primary) hypertension; Z88.0 Allergy status to penicillin; Z88.2 Allergy status to sulfonamides; Z88.8 Allergy status to other drugs, medicaments and biological substances; Z98.890 Other specified postprocedural states; Z79.899 Other long term (current) drug therapy ==

== ENCOUNTER → 2023-01-30 | Outpatient (CLI) | payer OTHER ==
[2023-01-30 12:16] LABS: BASO % 0.5 % (0.0-1.0); EOS # 0.4 10*3/uL (0.0-0.4); EOS % 4.8 % (1.0-4.0); HEMATOCRIT 41.6 % (37.0-47.0); LYMPH # 2.2 10*3/uL (1.3-4.4); LYMPH % 25.5 % (27.0-41.0); MEAN CELL VOLUME 89.8 fl (81.0-99.0); MEAN CORPUSCULAR HGB 30.2 pg (27.0-31.0); MEAN CORPUSCULAR HGB CONC 33.7 g/dl (33.0-37.0); MONO # 0.7 10*3/uL (0.1-1.0); NEUT # 5.3 10*3/uL (2.3-7.9); NEUT % 60.9 % (47.0-73.0); PLATELET COUNT AUTOMATED 363 10*3/uL (130-400); RED BLOOD COUNT 4.63 10*6/uL (4.10-5.10); WHITE BLOOD COUNT 8.7 10*3/uL (4.8-10.8)
[2023-01-30 12:45] LABS: POTASSIUM 4.1 mmol/L (3.4-5.1); TOTAL PROTEIN 7.2 gm/dL (6.0-8.0)
[2023-01-30 12:50] LABS: URINE CREATININE RANDOM 126.12 mg/dL
== END | disposition home or self-care (01) ==
LOC: LAB 11:53
PROVIDERS: ATTEND Student in an Organized Health Care Education/Training Program
DX: E11.41 Type 2 diabetes mellitus with diabetic mononeuropathy (principal)

== ENCOUNTER 2024-04-08 21:40 | Inpatient (IN) | payer OTHER ==
[~2024-04-08] VITALS: Ht 162.5 cm; Wt 110.0 kg
[2024-04-08 22:00] VITALS: BP 75/35
[2024-04-08] MEDS ORDERED: Ondansetron Hydrochloride 4 MG/2 ML VIAL IV PRN (22:05)
[2024-04-08] MEDS ORDERED: ATROPINE SULFATE 1% 2 ML BOTTLE SL PRN (22:05)
[2024-04-08] MEDS ORDERED: LORazepam 2 MG/ML VIAL IV PRN (22:05)
[2024-04-08] MEDS ORDERED: BISACODYL 10 MG SUPP R PRN (22:10)
[2024-04-08] MEDS ORDERED: ACETAMINOPHEN 650 MG SUPP R PRN (22:10)
[2024-04-08 22:30] VITALS: BP 73/31
[2024-04-08] MEDS ORDERED: MORPHINE Sulfate 100 MG in SODIUM CHLORIDE 0.9% 90 ML IV SCH (22:30)
[2024-04-08 23:00] VITALS: BP 71/32
[2024-04-08] MEDS ORDERED: SODIUM CHLORIDE 0.9% 500 ML IV SCH (23:10)
[2024-04-08 23:30] VITALS: BP 65/32
[2024-04-09] VITALS: BP 62/28
== END 2024-04-09 00:30 | DRG 871 ==
LOC: ICCU 21:40
PROVIDERS: ADMIT Internal Medicine; ATTEND Internal Medicine
DX: A41.9 Sepsis, unspecified organism (principal); E11.10 Type 2 diabetes mellitus with ketoacidosis without coma; J96.21 Acute and chronic respiratory failure with hypoxia; J96.22 Acute and chronic respiratory failure with hypercapnia; N17.0 Acute kidney failure with tubular necrosis; R65.21 Severe sepsis with septic shock; K92.2 Gastrointestinal hemorrhage, unspecified; N39.0 Urinary tract infection, site not specified; Z68.41 Body mass index [BMI] 40.0-44.9, adult; D64.9 Anemia, unspecified; E66.01 Morbid (severe) obesity due to excess calories; K21.9 Gastro-esophageal reflux disease without esophagitis; E11.42 Type 2 diabetes mellitus with diabetic polyneuropathy; I12.9 Hypertensive chronic kidney disease with stage 1 through stage 4 chronic kidney disease, or unspecified chronic kidney disease; E11.22 Type 2 diabetes mellitus with diabetic chronic kidney disease; N18.9 Chronic kidney disease, unspecified; T68.XXXA Hypothermia, initial encounter; X58.XXXA Exposure to other specified factors, initial encounter; Z66 Do not resuscitate; Z51.5 Encounter for palliative care; Y93.89 Activity, other specified; Y92.89 Other specified places as the place of occurrence of the external cause; Y99.8 Other external cause status